=== PATIENT | male | born 1970 | race Caucasian/White ===

== ENCOUNTER 2022-04-18 22:21 | Emergency (ER) | payer OTHER ==
[~2022-04-18] VITALS: Ht 175.3 cm; Wt 86.2 kg
[2022-04-18 22:41] LABS: HEMATOCRIT 41.5 % (36.7-47.1); MEAN CORPUSCULAR HEMOGLOBIN 30.8 uug (23.8-33.4); MEAN CORPUSCULAR VOLUME 90.4 fL (73.0-96.2); PLATELET COUNT (AUTO) 160 K/uL (152-348)
[2022-04-18 23:02] LABS: ALANINE AMINOTRANSFERASE 53 U/L (16-63); ALKALINE PHOSPHATASE 35 U/L (50-136); ASPARTATE AMINOTRANSFERASE 14 U/L (15-37); BILIRUBIN,DIRECT < 0.1 mg/dL (0.0-0.2); BILIRUBIN,TOTAL 0.3 mg/dL (0.2-1.0); CARBON DIOXIDE 27 mmol/L (21-32); CHLORIDE 104 mmol/L (98-107); CREATININE 1.1 mg/dL (0.6-1.3); GLUCOSE 110 mg/dL (74-106); TOTAL PROTEIN, SERUM 6.7 g/dL (6.4-8.2); UREA NITROGEN, BLOOD 32 mg/dL (7-18)
[2022-04-19] MEDS ORDERED: LORAZEPAM 2 MG/1 ML VIAL ONE (00:11)
[2022-04-19] MEDS ORDERED: DEXA4TAB2 PO (00:32)
[2022-04-19] MEDS ORDERED: LORA-259 PO (00:32)
[2022-04-19] MEDS ORDERED: LACO200T2 PO (00:32)
[2022-04-19] MEDS ORDERED: PHEN100C4 PO (00:32)
[2022-04-19] MEDS ORDERED: LORAZEPAM 2 MG/1 ML VIAL IM ONE (01:45)
--- NOTE | 2022-04-19 03:00 | NUR ---
Patient discharged to home in stable condition. Written and verbal after care instructions given. Patient verbalizes understanding of instructions. Stressed follow up or return to ER for worsening s/s.
[2022-04-19 03:31] VITALS: BP 132/86
== END 2022-04-19 03:06 | disposition home or self-care (01) ==
LOC: ER 22:23
DX: R45.1 Restlessness and agitation (principal); C71.9 Malignant neoplasm of brain, unspecified
CPT/HCPCS: 36415; 80048; 80076; 85025; 96372; 99283; J2060; A4663